=== PATIENT | female | born 1950 | race Caucasian/White ===

== ENCOUNTER 2018-03-12 06:13 | Day surgery (SDC) | payer MEDICARE, BC ==
[2018-02-20 13:22] LABS: BASO % 0.4 % (0-6); EOS % 2.2 % (0-6); GRAN % 60.2 % (47-80); HEMATOCRIT 42.5 % (35.0-47.0); HEMOGLOBIN 14.1 gm/dl (11.6-16.0); LYMPH % 29.1 % (16-45); MEAN CELL VOLUME 89.9 fl (81-97); MEAN CORPUSCULAR HEMOGLOBIN 29.8 pg (27-33); MEAN CORPUSCULAR HGB CONC 33.2 g/dl (32-36); MEAN PLATELET VOLUME 10.4 fl (7.4-10.4); MONO % 8.1 % (0-9); PLATELET COUNT 271 K/uL (130-400); RED BLOOD COUNT 4.73 M/uL (3.80-5.40); RED CELL DISTRIBUTION WIDTH 12.7 % (11.5-14.5); WHITE BLOOD COUNT W/O DIFF 6.8 K/uL (4.2-12.2)
[2018-02-20 13:24] LABS: URINE APPEARANCE CLEAR; URINE BILIRUBIN NEGATIVE (NEGATIVE); URINE BLOOD NEGATIVE (NEGATIVE); URINE COLOR YELLOW; URINE GLUCOSE (UA) NEGATIVE (NEGATIVE); URINE KETONE NEGATIVE (NEGATIVE); URINE LEUKOCYTE ESTERASE TRACE (NEGATIVE); URINE NITRITE NEGATIVE (NEGATIVE); URINE UROBILINOGEN 0.2 E.U./dL (0.20 - 1.00)
[2018-02-20 13:35] LABS: CREATININE 1.2 mg/dL (0.5-0.9)
[2018-02-20 13:39] LABS: URINE BACTERIA FEW; URINE EPITHELIAL CELLS 0 - 2 (FEW); URINE RBC 0 - 2 (NONE SEEN); URINE WBC 0 - 2 (0-2/hpf)
[~2018-03-12 06:13] MED LIST: ACETAMINOPHEN 1,000 MG/100 ML BTL IV ONE; CELECOXIB 100 MG CAPSULE PO ONE; FAMOTIDINE 20MG TABLET PO ONE; MECLIZINE 25 MG TABLET PO ONE; METOCLOPRAMIDE 10 MG TABLET PO ONE; VANCOMYCIN HCL 1,000 MG in DEXTROSE 5 % IN WATER 250 ML IVPB ONE
[2018-03-12] MEDS ORDERED: HYDROMORPHONE HCL 2 MG/ML VIAL IV ONE (06:14)
[2018-03-12] MEDS ORDERED: ROPIVACAINE HCL (NAROPIN) /PF 5MG/ML 20ML VIAL IV ONE (06:14)
[2018-03-12] MEDS ORDERED: TRANEXAMIC ACID 1,000 MG/10 ML ML IV ONE ×2 (06:14)
[2018-03-12] MEDS ORDERED: ONDANSETRON HCL IV 4 MG/2 ML VIAL IVP ONE (06:14)
[2018-03-12] MEDS ORDERED: BUPIVACAINE LIPOSOME 266MG/20ML VIAL IV ONE (06:14)
[2018-03-12] MEDS ORDERED: PROPOFOL 10 MG/ML VIAL IV ONE (06:14)
[2018-03-12] MEDS ORDERED: FENTANYL PF 100MCG/2ML VIAL IV ONE (06:14)
[2018-03-12] MEDS ORDERED: VANCOMYCIN HCL 1 GM VIAL IVPB ONE ×2 (06:14)
[2018-03-12] MEDS ORDERED: LIDOCAINE 2% MDV (20MG/ML) 20ML VIAL IV ONE (06:14)
[2018-03-12] MEDS ORDERED: DESFLURANE 240 ML BTL INH ONE (06:14)
[2018-03-12] MEDS ORDERED: DEXAMETHASONE 4 MG/ML 1ML VIAL IVP ONE ×2 (06:14)
[2018-03-12] MEDS ORDERED: EPHEDRINE SULFATE 50 MG/ML ML IV ONE (06:14)
[2018-03-12] MEDS ORDERED: BUPIVACAINE 0.5% W/EPI MPF 30 ML VIAL IVP ONE ×2 (06:14)
[2018-03-12] MEDS ORDERED: MIDAZOLAM HCL 2MG/2ML VIAL IV ONE (06:14)
[2018-03-12 07:17] LABS: ABO GROUP A; ANTIBODY SCREEN NEGATIVE (NEGATIVE); RH TYPE POSITIVE
[2018-03-12] MEDS ORDERED: ONDANSETRON HCL IV 4 MG/2 ML VIAL IVP PRN (08:23)
[2018-03-12] MEDS ORDERED: PROMETHAZINE HCL 12.5 MG in 0.9 % SODIUM CHLORIDE 100ML 50 ML IVPB PRN (08:23)
[2018-03-12] MEDS ORDERED: BISACODYL 10 MG SUPP RC PRN (08:23)
[2018-03-12] MEDS ORDERED: ZOLPIDEM TARTRATE 5 MG TABLET PO PRN (08:23)
[2018-03-12] MEDS ORDERED: DIPHENHYDRAMINE HCL 25 MG CAPSULE PO PRN (08:23)
[2018-03-12] MEDS ORDERED: HYDROCODONE/APAP 5/325MG TABLET PO PRN ×2 (08:23)
[2018-03-12] MEDS ORDERED: HYDROCODONE/APAP 7.5/325MG TABLET PO PRN ×2 (08:23)
[2018-03-12] MEDS ORDERED: KETOROLAC 30 MG/ML VIAL IVP PRN ×2 (08:23)
[2018-03-12] MEDS ORDERED: NALOXONE 0.4 MG/1 ML VIAL IVP PRN (08:23)
[2018-03-12] MEDS ORDERED: MAGNESIUM HYDROXIDE 30 ML UDC PO PRN (08:23)
[2018-03-12] MEDS ORDERED: ACETAMINOPHEN W/ CODEINE 300MG/60MG TABLET PO PRN ×2 (08:23)
[2018-03-12] MEDS ORDERED: TRAMADOL HCL 50 MG TABLET PO PRN ×2 (08:23)
[2018-03-12] MEDS ORDERED: HYDROMORPHONE HCL 2 MG/ML VIAL IM PRN ×2 (08:23)
[2018-03-12] MEDS ORDERED: AL HYDROX/MAG HYDROX 30ML UD PO PRN (08:23)
[2018-03-12] MEDS ORDERED: ACETAMINOPHEN 325 MG TAB PO PRN (08:23)
[2018-03-12] MEDS: ACETAMINOPHEN W/ CODEINE 300MG/30MG TABLET PO PRN ×2 (13:40→16:22)
[2018-03-12] MEDS: DEXTROSE 5 % AND 0.9 % NACL 1,000 ML IV PRN (14:30)
[2018-03-12] MEDS: METOCLOPRAMIDE HCL 10 MG/2 ML VIAL IVP PRN ×2 (14:34→18:32)
--- NOTE | 2018-03-12 15:31 | Rehab Evaluation ---
Patient Information - Patient Information Diagnosis: right total knee arthroplasty Ordered Treatment: OT Evaluate and Treat Status: Initial Evaluation Surgery: Yes (Right total knee arthroplasty) Date of Surgery: 03/12/18 Past Medical/Surgical Hx: PAST MEDICAL/SURGICAL HISTORY Past Surgical History jackie c section tonsils tubal ligation cervical fusion PMH - Respiratory Hx Respiratory Disorders Yes Hx Pneumonia Yes: as a baby PMH - Cardiovascular Hx Cardiovascular Disorders Yes Hx Edema Yes: mild takes diuretic Hx Hypertension Yes: on meds good control Exercise Tolerance Fair Hx of Migraines Yes: yrs ago Comment: hyperlipidemia PMH - Neuro Hx Neurological Disorders Yes 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 She has a walk in shower and an elevated toilet with grab bars. She is Ind with all ADLs/IADLs. She has a walker and a shower bench.) Social History: Detail (Supportive daughter lives across the street.) Precautions: [place], Fall, Other (WBAT right LE) - Time With Patient Total Time Spent With Patient (Min): 35 Treatment Procedures: Detail (OT eval low complexity) Subjective Information - Subjective Information Per Patient Objective Data - Pain Pain Present: Yes (05/20) - Mental Status Patient Orientation: Oriented x3 - Visual Perception Appears within normal limits for therapeutic activities - ROM Within normal limits (William UE AROM WNL) - Strength/Tone Within normal limits (William UE strength WNL) - Coordination Appears within normal limits for therapeutic activities - Bed Mobility Independent (Ind with supine to sit.) - Transfers Independent (Ind with sit to stand from EOB and chair heights.) - Balance Balance Sitting: Good Balance Standing: Good - Sensation Intact - Gait Detail (Pt ambulating in room with standard walker Indly.) - ADL's/IADL's Detail (Pt educated re: modified LE dressing techniques. She already had pants on but she was able to verbalize understanding of technique. She was Ind with demonstration of doffing slipper socks and donning socks and tennis shoes. Reviewed donning of bushra hose, pt verbalized understanding. Reviewed shower and kitchen modifications and safety, pt verbalized understanding.) Therapy Assessment - Therapy Assessment Detail (Pt is safe and Ind with modified LE dressing techniques.) Problem List - Problem List Occupational Therapy Problem List: Detail (No current IP OT problems identified. ) Goals - Goals Occupational Therapy Goals: No current IP OT goals identified. Prognosis - Prognosis Good Plan - Plan Occupational Therapy Plan: No further IP OT recommended. Thank you for this referral.
--- NOTE | 2018-03-12 15:52 | Rehab Evaluation ---
Patient Information - Patient Information Diagnosis: R knee OA Ordered Treatment: PT Evaluate and Treat Status: Initial Evaluation Surgery: Yes (Right total knee arthroplasty) Date of Surgery: 03/12/18 Past Medical/Surgical Hx: PAST MEDICAL/SURGICAL HISTORY Past Surgical History jackie c section tonsils tubal ligation cervical fusion PMH - Respiratory Hx Respiratory Disorders Yes Hx Pneumonia Yes: as a baby PMH - Cardiovascular Hx Cardiovascular Disorders Yes Hx Edema Yes: mild takes diuretic Hx Hypertension Yes: on meds good control Exercise Tolerance Fair Hx of Migraines Yes: yrs ago Comment: hyperlipidemia PMH - Neuro Hx Neurological Disorders Yes 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 She has a walk in shower and an elevated toilet with grab bars. She is Ind with all ADLs/IADLs. She has a walker and a shower bench.) Precautions: [place], Fall, Other (WBAT right LE) - Time With Patient Total Time Spent With Patient (Min): 30 Treatment Procedures: Detail (Initial Evaluation, gait training) Subjective Information - Subjective Information Per Patient (The patient felt knee pressure, no pain. The patient had complaints of nausea when sitting up and lightheadedness.) Objective Data - Mental Status Patient Orientation: Oriented x3 - Visual Perception Appears within normal limits for therapeutic activities - ROM Not within normal limits (The patient's R knee AROM is limited s/p surgery. All other AROM is WNL.) - Strength/Tone Not within normal limits (The patient's R LE strength was not tested s/p surgery however was functional ie: patient was able to lift R LE out of bed. The patient's L LE strength was WFL.) - Bed Mobility Independent (The patient was independent with supine to and from sit transfer.) - Transfers Independent (Independent sit to and from stand transfer.) - Balance Balance Sitting: Good Balance Standing: Good - Sensation Intact - Gait Detail (The patient ambulated with front wheeled walker WBAT on the R LE a distance of 48 feet x 1 with supervision for safety only.) Therapy Assessment - Therapy Assessment Detail (The patient was independent with transfers , bed mobility and supervision for safety with ambulation. Feel the patient will progress well with mobility.) Problem List - Problem List Physical Therapy Problem List: Detail (1)Decreased R knee AROM and R LE strenth as to be expected. 2) Non ambulatory on stairs.) Goals - Goals Physical Therapy Goals: 1) The patient will be independent with TKA HEP. 2) The patient will ambulate on stairs with supervision for safety using proper technique. Prognosis - Prognosis Good Plan - Plan Physical Therapy Plan: PT 1-2 sessions for gait training on stairs and instruction in HEP.
--- NOTE | 2018-03-12 18:03 | Operative Note ---
DATE OF SURGERY: 03/12/18 PREOPERATIVE DIAGNOSIS: RIGHT KNEE ARTHROSIS. POSTOPERATIVE DIAGNOSIS: RIGHT KNEE ARTHROSIS. PROCEDURE: RIGHT TOTAL KNEE ARTHROSCOPY. SURGEON: CATHERINE HERNANDEZ M.D. ANESTHESIA: GENERAL ENDOTRACHEAL. COMPLICATIONS: NONE. BLOOD LOSS: MINIMAL. TOURNIQUET TIME: 65 MINUTES. OPERATIVE FINDINGS: [id number] lateral compartment valgus arthrosis. Components placed 2 gm Vancomycin cement Baker-Nephew Journey two Oxinium size 5 femoral component, size 4 tibial baseplate, 9 mm thick tibial poly insert, and a 32 mm cemented patellar component. INDICATIONS FOR OPERATION: This is a 67-year-old female with end-stage knee arthrosis, failed nonoperative treatment, and scheduled for knee replacement. I explained all the risks and benefits thoroughly in detail for her diagnosis and procedures including but not limited to infection, nerve injury, vessel injury, persistent pain, stiffness, numbness and tingling in her knee, periprosthetic fracture, the need for resection arthroplasty if the components become infected or loosened, nerve injury, vessel injury, blood clot, and need for further procedures, and all of her questions were answered. Rehab and course were outlined and agreed to proceed. PROCEDURE: The patient brought to O.R. and placed in the supine position for arthroscopic surgery. General endotracheal anesthesia was induced and her right lower extremity and knee were prepped and draped in the usual sterile fashion. The right knee was prepped again with ChloraPrep after it was draped. Intraoperative time-out was performed. Next, the knee was re-prepped again with ChloraPrep. The knee was injected with 0.5% Marcaine with Epinephrine. the leg was exsanguinated with Esmarch. The knee was flexed and the tourniquet was inflated with 250 mmHg pressure. Next, the skin and subcutaneous was dissected down. Incised the capsule mediolateral around the medial border of the patella to the tibial tubercle. Incised the vastus medialis in line with its fibers in a mid vastus approach. Partially resected the retropatellar fat pad. Everted the patella, flexed the knee, and drilled the intercondylar drill hole, inserted intramedullary guide demetrice with a 6 degree cutting block, aligned distal femoral condyles and pinned it in the +2 mm position and cut the distal femoral condyle. Next, on the distal femoral condyle, we placed a sizing jig and sized it to be right on size 5. Through the previously placed pinholes, placed a size 5 cutting jig. We dialed in the anterior cut so it would come out flush without notching and it was a good cut flush and we cut the remainder of the chamfer cuts in the usual fashion. Next, we placed the size 5 trial component, centered it, pinned it, removed osteophytes off the periphery, and inserted the resection collet, reamed out, and box osteotomed out with the cruciate bone block. Next, attention was turned to the tibia. Exposed the proximal tibia, seated the spikes in the intertubercular groove two fingerbreadths distally and referenced for a 7 mm cut off the higher medial plateau. Then, we pinned the cutting jig provisional between the anterior and posterior pins. Rechecked the alignment cut with a drop demetrice, centered until we had tibial anatomic axis, cross-pinned the cutting jig to complete its fixation, and cut the tibia. Next, removed osteophytes off the posterior femoral condyles. Checked the flexor and extensor gaps and they were symmetric with a 9 mm thick poly insert. Overall, alignment cuts in extension with alignment demetrice were centered on the hip joint and ankle joint. Next, we took the knee in flexion and sized the tibial baseplate to a size 4. Replaced all trial components, again set the tibial baseplate rotation extension using alignment rods centered in the hip joint and ankle joint. Marked with electrocautery gunter on the tibial cortex off the laser gunter of the tibial baseplate. Next, measured the patella. The patella was measured to be 21 mm. Set the cutting jig at 12 mm to allow for a 9 mm thick poly insert. We cut the patella about 12-13, rechecked and it was right on 03-22, sized to be 32 medial as much as possible and drilled three peg holes and then placed the trial patellar component, and did a trial range of motion. Mixed cement and the patella tracked nicely handsfree with full extension and flexion to 140 degrees symmetric flexion and extension again were found. Next, mixed cement, brought in clean sheets. Copious irrigated the bony surfaces with pulsatile antibiotic solution. We centered the tibial baseplate previously, pinned it, and then drilled out and keel punched the keel hole. We placed a bone plug in the femoral canal hole. Next, we pre-coated both surfaces, impacted down the tibial component first, then the femoral component. We placed a trial tibial poly liner and held the knee in extension, and clamped down the patellar component until the cement hardened. Once the cement hardened, took the knee into flexion and distracted the knee with a bone hook and sponge, removed all trial components, removed any excess cement around the edges of the components. Next, we injected our mixture of 0.5% Marcaine with Epinephrine, 2 grams Tranexamic Acid, and Exparel in the deep capsule mediolaterally, periosteum mediolaterally working out superficially through the vastus muscle patellar tendon subcutaneous. Next, we inserted the real tibial poly insert verifying it was interlocked medially and laterally. Final range of motion revealed the same. We irrigated copiously, closed the capsule and vastus with a running #2 quill suture. Closed the skin deep with 2-0 Vicryl and a sterile provisional dressing was applied and it will be changed to a ABILIO dressing prior to discharge. cc: Primary Care Physician in [place], [place] JOB NUMBER: [id number] MTDD
[2018-03-12] MEDS: VANCOMYCIN HCL 1,000 MG in DEXTROSE 5 % IN WATER 250 ML IVPB SCH ×2 (18:31)
[2018-03-12] MEDS: FERROUS SULFATE 325 MG TAB PO SCH (21:34)
[2018-03-12] MEDS: DOCUSATE SODIUM 100 MG CAPSULE PO SCH (21:34)
[2018-03-12] MEDS: PATIENT OWN MED: METOPROLOL TARTRATE 25 MG PO SCH (21:48)
[2018-03-12] MEDS ORDERED: METOPROLOL TART 25 MG TABLET PO SCH (22:00)
[2018-03-13] MEDS: DEXTROSE 5 % AND 0.9 % NACL 1,000 ML IV PRN (01:39)
[2018-03-13] MEDS: ACETAMINOPHEN W/ CODEINE 300MG/30MG TABLET PO PRN ×3 (02:38→13:03)
[2018-03-13] MEDS: VANCOMYCIN HCL 1,000 MG in DEXTROSE 5 % IN WATER 250 ML IVPB SCH ×2 (06:07)
[2018-03-13 06:28] LABS: HEMATOCRIT 34.2 % (35.0-47.0); HEMOGLOBIN 11.1 gm/dl (11.6-16.0)
[2018-03-13] MEDS ORDERED: PATIENT OWN MED: LEVOTHYROXINE 25 MCG PO SCH (07:00)
[2018-03-13] MEDS: FERROUS SULFATE 325 MG TAB PO SCH (09:16)
[2018-03-13] MEDS: DOCUSATE SODIUM 100 MG CAPSULE PO SCH (09:16)
[2018-03-13] MEDS: PATIENT OWN MED: METOPROLOL TARTRATE 25 MG PO SCH (09:19)
[2018-03-13] MEDS ORDERED: RIVAROXABAN 10 MG TABLET PO SCH (10:00)
[2018-03-13] MEDS ORDERED: ULORIC 40 MG PO SCH (10:00)
[2018-03-13] MEDS ORDERED: PATIENT OWN MED: ATORVASTATIN 10 MG PO SCH (10:00)
[2018-03-13] MEDS ORDERED: PATIENT OWN MED: HYDROCHLOROTHIAZIDE 25 MG PO SCH (10:00)
[2018-03-13] MEDS ORDERED: CELECOXIB 100 MG CAPSULE PO SCH (10:00)
[2018-03-13] MEDS ORDERED: PATIENT OWN MED: ENALAPRIL 20 MG PO SCH (10:00)
--- NOTE | 2018-03-13 10:54 | Physical Therapy Tx Note ---
Physical Therapy Tx Note - Treatment Note Tolerated: Good Total Time Spent With Patient: 25 Physical Therapy Tx Note: Detail (The patient was up in chair when PT arrived. The patient ambulated with standard walker a distance of 100 feet x 1 WBAT on R LE independently. The patient ambulated on stairs with use of one railing and folded walker using proper technique with supervision for safety only. The patient completed the following TKA exercises including: seated heel slides, quad sets, gluteal sets, hamstring sets, SLR and ankle pumps. The patient had difficulty with isolating quad on the R. The patient has met all inpatient PT goals and is discharged from inpatient PT.) Physical Therapy Problem List: Detail (1)Decreased R knee AROM and R LE strenth as to be expected. 2) Non ambulatory on stairs.) Physical Therapy Goals: GOALS MET: 1) The patient will be independent with TKA HEP. 2) The patient will ambulate on stairs with supervision for safety using proper technique. Physical Therapy Plan: All inpatient PT goals have been met. The patient is to continue with Home PT.
== END 2018-03-13 13:30 | disposition home health service (06) ==
LOC: SUR 06:13 → MEDSURG 11:41 → SUR 03-13 13:30
PROVIDERS: ATTEND Orthopaedic Surgery
DX: M17.11 Unilateral primary osteoarthritis, right knee (principal); I10 Essential (primary) hypertension; E78.00 Pure hypercholesterolemia, unspecified; M10.9 Gout, unspecified; N19 Unspecified kidney failure; R25.1 Tremor, unspecified
CPT/HCPCS: 27447; 01402; 64447; 85025; 85018; 85014; 80048; 81001; 86900; 86901; 86850; 90686; G0008; J2405; J3370 ×2; J3010; J1170; C9290; J3490; J2795; G8978; G8979 ×2; G8980; G8987; G8988; G8989; 97110; 97530; J2765; J7042; J7060